=== PATIENT | female | born 1960 | race Caucasian/White ===

== ENCOUNTER 2021-07-02 11:34 | Inpatient (IN) | payer MEDICAID ==
[~2021-07-02] VITALS: Ht 154.9 cm; Wt 56.7 kg
[2021-07-02] MEDS ORDERED: SODIUM CHLORIDE 0.9% 1,000 ML IV ONE (12:15)
[2021-07-02] MEDS ORDERED: VANCOMYCIN 1G PREMIX 200 ML IV ONE (12:15)
[2021-07-02] MEDS ORDERED: PIPERACILLIN/TAZ 3.375G PREMIX 50 ML IV ONE (12:15)
[2021-07-02 12:33] LABS: HEMATOCRIT. 33.8 % (36.0-48.0); HEMOGLOBIN. 11.3 g/dL (12.0-16.0); MEAN CORPUSCULAR HEMOGLOBIN 28.8 pg (28.0-32.0); MEAN CORPUSCULAR VOLUME 86.4 fL (81.0-99.0); MEAN PLATELET VOLUME 9.1 fl (7.4-10.4); PLATELET 198 x1000/uL (130-400); RED BLOOD CELL COUNT 3.91 mill/uL (4.2-5.4); RED CELL DISTRIBUTION WIDTH 14.6 % (11.6-14.6)
[2021-07-02 12:39] LABS: CHLORIDE 97 mEq/L (98-107)
[2021-07-02 13:03] LABS: PLATELET ESTIMATE NORMAL
[2021-07-02] MEDS ORDERED: MORPHINE SULFATE 4 MG/ML CPJ (NOT FOR IM USE) IV NR (14:10)
[2021-07-02] MEDS ORDERED: ONDANSETRON HCL 4MG/2ML INJ IV NR (14:10)
[2021-07-02 17:57] LABS: CLARITY URINE CLOUDY (CLEAR); COLOR URINE YELLOW (YELLOW); KETONES URINE NEGATIVE (NEGATIVE); LEUKOCYTE ESTERASE URINE TRACE (NEGATIVE); NITRITE URINE POSITIVE (NEGATIVE); OCCULT BLOOD URINE NEGATIVE (NEGATIVE); PH URINE 6.5 (4.5-8.0); PROTEIN URINE 1+ (NEGATIVE); SPECIFIC GRAVITY URINE 1.023 (1.005-1.030)
[2021-07-02] MEDS ORDERED: DEXTROSE 50% WATER 50ML SYRINGE IV PRN ×2 (18:15)
[2021-07-02] MEDS ORDERED: ACETAMINOPHEN 325MG TABLET PO PRN (18:15)
[2021-07-02] MEDS ORDERED: CLONIDINE 0.1MG TABLET PO PRN (18:15)
[2021-07-02] MEDS ORDERED: DOCUSATE SODIUM 100MG CAPSULE PO PRN (18:15)
[2021-07-02] MEDS ORDERED: ONDANSETRON HCL 4MG/2ML INJ IV PRN (18:15)
[2021-07-02] MEDS ORDERED: ZOLPIDEM TARTRATE 5MG TABLET PO PRN (18:15)
[2021-07-02] MEDS ORDERED: DIPHENHYDRAMINE 50MG/ML VIAL IV PRN (18:15)
[2021-07-02] MEDS ORDERED: MAGNESIUM/ALUMINUM HYDROXIDE/SIMETHICONE 30ML UDC PO PRN (18:15)
[2021-07-02] MEDS: INSULIN LISPRO 100 UNITS/ML SUBCUT SCH ×2 (18:20→21:00)
[2021-07-02] MEDS ORDERED: CLINDAMYCIN 300 MG in DEXTROSE 5% WATER 50 ML IV SCH (20:00)
[2021-07-02] MEDS: CLINDAMYCIN 300 MG in DEXTROSE 5% WATER 50 ML IV SCH (20:00)
[2021-07-02] MEDS ORDERED: BLOOD SUGAR DIAGNOSTIC STRIP TEST SCH (21:00)
[2021-07-02] MEDS: BLOOD SUGAR DIAGNOSTIC STRIP TEST SCH (21:21)
[2021-07-02] MEDS: INSULIN GLARGINE UD 100 UNITS/ML SYR SUBCUT SCH (21:32)
[2021-07-02] MEDS ORDERED: INSULIN GLARGINE UD 100 UNITS/ML SYR SUBCUT SCH (22:00)
[2021-07-02] MEDS: SODIUM CHLORIDE 0.9% INJ 3ML FLUSH IVF SCH (22:14)
[2021-07-03] MEDS: INSULIN LISPRO 100 UNITS/ML SUBCUT SCH ×4 (08:59→23:11)
[2021-07-03] MEDS: BLOOD SUGAR DIAGNOSTIC STRIP TEST SCH ×4 (08:59→21:00)
[2021-07-03] MEDS: CLINDAMYCIN 300 MG in DEXTROSE 5% WATER 50 ML IV SCH ×3 (09:15→20:42)
[2021-07-03] MEDS: SODIUM CHLORIDE 0.9% INJ 3ML FLUSH IVF SCH ×3 (09:16→23:12)
[2021-07-03] MEDS ORDERED: NALOXONE HCL 0.4MG/ML VIAL IV PRN (11:30)
[2021-07-03] MEDS: ACETAMINOPHEN 325MG TABLET PO PRN (11:35)
[2021-07-03 21:00] VITALS: BP 138/53
[2021-07-03] MEDS: PREGABALIN 25MG CAPSULE PO SCH (23:10)
[2021-07-03] MEDS: INSULIN GLARGINE UD 100 UNITS/ML SYR SUBCUT SCH (23:42)
[2021-07-04] VITALS (7 sets, daily range): BP systolic 118–150; BP diastolic 52–68
[2021-07-04] MEDS: CLINDAMYCIN 300 MG in DEXTROSE 5% WATER 50 ML IV SCH ×3 (05:10→21:17)
[2021-07-04] MEDS: HYDROCODONE/ACETAMINOPHEN 10/325MG TABLET PO PRN ×2 (05:10→17:55)
[2021-07-04] MEDS: BLOOD SUGAR DIAGNOSTIC STRIP TEST SCH ×4 (06:59→21:06)
[2021-07-04] MEDS: SODIUM CHLORIDE 0.9% INJ 3ML FLUSH IVF SCH ×2 (07:01→21:17)
[2021-07-04] MEDS: INSULIN LISPRO 100 UNITS/ML SUBCUT SCH ×4 (07:01→21:16)
[2021-07-04] MEDS: PREGABALIN 25MG CAPSULE PO SCH ×2 (09:39→21:17)
[2021-07-04] MEDS: INSULIN GLARGINE UD 100 UNITS/ML SYR SUBCUT SCH (21:17)
[2021-07-05] VITALS: BP 123/52
[2021-07-05] MEDS: HYDROCODONE/ACETAMINOPHEN 10/325MG TABLET PO PRN (03:00)
[2021-07-05] MEDS: CLINDAMYCIN 300 MG in DEXTROSE 5% WATER 50 ML IV SCH ×3 (03:01→22:51)
[2021-07-05 04:00] VITALS: BP 142/68
[2021-07-05] MEDS: BLOOD SUGAR DIAGNOSTIC STRIP TEST SCH ×4 (06:53→21:00)
[2021-07-05] MEDS: SODIUM CHLORIDE 0.9% INJ 3ML FLUSH IVF SCH ×3 (06:53→22:53)
[2021-07-05] MEDS: INSULIN LISPRO 100 UNITS/ML SUBCUT SCH ×4 (07:50→21:00)
[2021-07-05 08:00] VITALS: BP 131/62
[2021-07-05] MEDS: PREGABALIN 25MG CAPSULE PO SCH ×2 (09:00→22:52)
[2021-07-05] MEDS ORDERED: BUPIVACAINE HCL/PF 0.25% (2.5MG/ML) 10ML ONE (10:56)
[2021-07-05] MEDS ORDERED: VANCOMYCIN HCL 1 GM/VIAL ONE (10:56)
[2021-07-05] MEDS ORDERED: POLYMYXIN B SULFATE 500000 UNITS/VIAL ONE (10:56)
[2021-07-05 12:00] VITALS: BP 129/64
[2021-07-05] MEDS ORDERED: MIDAZOLAM HCL 2 MG/2 ML VIAL ONE (13:17)
[2021-07-05] MEDS ORDERED: FENTANYL CITRATE/PF 50MCG/ML 2ML VIAL ONE (13:17)
[2021-07-05] MEDS ORDERED: PROPOFOL 200MG/20ML VIAL IV ONE (13:17)
[2021-07-05] MEDS ORDERED: HYDROMORPHONE HCL/PF 2MG/ML CPJ IV PRN (13:30)
[2021-07-05] MEDS ORDERED: MEPERIDINE HCL/PF 25MG/ML CPJ IV PRN (13:30)
[2021-07-05] MEDS ORDERED: ONDANSETRON HCL 4MG/2ML INJ IV PRN (13:30)
[2021-07-05] MEDS ORDERED: LABETALOL 5MG/ML SYR 20 MG/4 ML SYRINGE IV PRN (13:30)
[2021-07-05] MEDS ORDERED: ROPIVACAINE HCL 10MG/ML 20 ML VIAL EPI ONE ×2 (13:32→13:40)
[2021-07-05] MEDS ORDERED: ONDANSETRON HCL 4MG/2ML INJ ONE (14:00)
[2021-07-05] MEDS ORDERED: DEXAMETHASONE 4MG/ML 1ML VIAL ONE (14:00)
[2021-07-05 16:00] VITALS: BP 136/57
[2021-07-05] MEDS: INSULIN GLARGINE UD 100 UNITS/ML SYR SUBCUT SCH (23:00)
[2021-07-05] MEDS: ACETAMINOPHEN 325MG TABLET PO PRN (23:01)
[2021-07-06] MEDS: CLINDAMYCIN 300 MG in DEXTROSE 5% WATER 50 ML IV SCH ×3 (03:17→20:57)
[2021-07-06] MEDS: ACETAMINOPHEN 325MG TABLET PO PRN (06:38)
[2021-07-06] MEDS: SODIUM CHLORIDE 0.9% INJ 3ML FLUSH IVF SCH ×3 (06:38→21:12)
[2021-07-06] MEDS: BLOOD SUGAR DIAGNOSTIC STRIP TEST SCH ×4 (06:38→21:13)
[2021-07-06] MEDS: INSULIN LISPRO 100 UNITS/ML SUBCUT SCH ×4 (07:50→21:00)
[2021-07-06 08:00] VITALS: BP 130/60
[2021-07-06] MEDS: PREGABALIN 25MG CAPSULE PO SCH ×2 (09:20→20:57)
[2021-07-06] MEDS: HYDROCODONE/ACETAMINOPHEN 10/325MG TABLET PO PRN ×3 (09:35→21:12)
[2021-07-06 12:00] VITALS: BP 126/50
[2021-07-06 16:00] VITALS: BP 135/52
[2021-07-06 20:00] VITALS: BP 136/50
[2021-07-06] MEDS: INSULIN GLARGINE UD 100 UNITS/ML SYR SUBCUT SCH (21:05)
[2021-07-07] VITALS: BP 119/50
[2021-07-07] MEDS: HYDROCODONE/ACETAMINOPHEN 10/325MG TABLET PO PRN ×2 (01:41→09:44)
[2021-07-07 04:00] VITALS: BP 101/59
[2021-07-07] MEDS: CLINDAMYCIN 300 MG in DEXTROSE 5% WATER 50 ML IV SCH (04:31)
[2021-07-07] MEDS: SODIUM CHLORIDE 0.9% INJ 3ML FLUSH IVF SCH ×2 (05:35→14:00)
[2021-07-07] MEDS: ACETAMINOPHEN 325MG TABLET PO PRN (05:38)
[2021-07-07] MEDS: BLOOD SUGAR DIAGNOSTIC STRIP TEST SCH ×2 (07:20→12:20)
[2021-07-07] MEDS: INSULIN LISPRO 100 UNITS/ML SUBCUT SCH ×2 (07:50→12:50)
[2021-07-07 08:00] VITALS: BP 125/55
[2021-07-07] MEDS: PREGABALIN 25MG CAPSULE PO SCH (09:37)
[2021-07-07 12:00] VITALS: BP 110/53
[2021-07-07] MEDS ORDERED: CLINDAMYCIN HCL 150MG CAPSULE PO SCH (14:00)
[2021-07-07 15:56] VITALS: BP 110/53
[2021-07-07 16:00] VITALS: BP 138/56
== END 2021-07-07 16:21 | disposition home health service (06) | DRG 710 ==
LOC: ER 11:51 → EDBEDREQSVC 14:48 → EDBEDREQTM 14:48 → EDBEDREQ 14:48 → MICUSO 15:23 → EDBEDREQTM 15:25 → EDBEDREQ 15:25 → 6EST 07-03 19:44
PROVIDERS: ADMIT Internal Medicine; ATTEND Internal Medicine
PROC: 0JDJ0ZZ Extraction of Right Hand Subcutaneous Tissue and Fascia, Open Approach (ICD-10-PCS; principal; 2021-07-05)
DX: A41.9 Sepsis, unspecified organism (principal); E11.40 Type 2 diabetes mellitus with diabetic neuropathy, unspecified; I10 Essential (primary) hypertension; D64.9 Anemia, unspecified; E11.65 Type 2 diabetes mellitus with hyperglycemia; L02.511 Cutaneous abscess of right hand; L03.113 Cellulitis of right upper limb; R74.01 Elevation of levels of liver transaminase levels; Z88.0 Allergy status to penicillin; Z20.822 Contact with and (suspected) exposure to COVID-19
CPT/HCPCS: 36415; 71045; 73030; 73090; 73110; 73130; 80053; 81003; 82962; 83036; 84145; 85025; 87070; 87075; 87426; 93005; 99285; A4565; C1893; J1100; J1815; J2250; J2270; J2405; J2543; J2704; J2795; J3010; J3370; J3490; J7030; J7040; J7060